=== PATIENT | male | born 1965 | race Two or more races ===

== ENCOUNTER 2023-01-13 18:12 | Inpatient (IN) | payer MEDICAID, OTHER ==
[~2023-01-13] VITALS: Ht 172.7 cm; Wt 74.9 kg
[2023-01-13 19:54] LABS: Basophils # (auto) 0.1 10 ^3/uL (0-0.2); Basophils % (auto) 0.6 % (0.0-2.0); Eosinophils # (auto) 0 10 ^3/uL (0-0.8); Eosinophils % (auto) 0.4 % (0.0-7.0); Hematocrit 45.2 % (41.0-53.0); Lymphocytes # (auto) 1.2 10 ^3/uL (0.4-5.4); Mean Corpuscular Hemoglobin 30.3 pg (28.0-32.0); Mean Corpuscular Hgb Conc. 33.2 g/dL (32.0-36.0); Mean Corpuscular Volume 91.3 fL (80.0-100.0); Monocytes # (auto) 1.5 10 ^3/uL (0-1.3); Monocytes % (auto) 11.6 % (0.0-12.0); Neutrophils # (auto) 10.3 10 ^3/uL (1.6-8.6); Neutrophils % (auto) 78.4 % (37.0-80.0); Nucleated Red Blood Cells % 0.1 %; Red Blood Cells 4.95 10^6/uL (4.5-5.90); Red Cell Distribution Width 13.7 % (11.8-14.3); White Blood Cell 13.1 10^3/uL (4.4-10.8)
[2023-01-13 20:15] LABS: Lactic Acid w/Reflex 2.1 mmol/L (0.4-2.0)
[2023-01-13 20:16] LABS: Alanine Aminotransferase 63 U/L (7-40); Albumin 3.7 g/dL (3.2-4.8); Alkaline Phosphatase 247 U/L (46-116); Anion Gap 6.8 (5-15); Aspartate Aminotransferase 36 U/L (13-40); BUN/Creatinine Ratio 10.6 (10.0-20.0); Bilirubin, Total 0.6 mg/dL (0.2-1.0); Blood Urea Nitrogen 9 mg/dL (9-23); Calcium 9.5 mg/dL (8.7-10.4); Carbon Dioxide 25.2 mmol/L (20-30); Chloride 93 mmol/L (98-107); Glucose 386 mg/dL (74-106); Potassium 4.9 mmol/L (3.5-5.1); Sodium 125 mmol/L (136-145); Total Protein 7.8 g/dL (5.7-8.2)
[2023-01-14] MEDS ORDERED: PIPERACILLIN-TAZOB 3.375GM 100 ML IV ONE (02:15)
[2023-01-14] MEDS ORDERED: VANCOMYCIN HCL 1000 MG VL IR ONE (02:15)
[2023-01-14] MEDS ORDERED: SODIUM CHLORIDE 0.9% 1,000 ML IV ONE (02:15)
[2023-01-14] MEDS ORDERED: IODIXANOL 320MG/ML 100ML BTL IV ONE (02:32)
[2023-01-14] MEDS ORDERED: VANCOMYCIN PER PHARMACY 0 MG IV SCH (05:00)
[2023-01-14] MEDS ORDERED: ACETAMINOPHEN 325 MG TAB PO PRN (05:00)
[2023-01-14] MEDS ORDERED: DEXTROSE (50%) 50ML SYRG IV PRN (05:00)
[2023-01-14] MEDS ORDERED: ONDANSETRON HCL 4 MG/2 ML VIAL IV PRN (05:00)
[2023-01-14] MEDS ORDERED: TEMAZEPAM 15 MG CAP PO PRN (05:00)
[2023-01-14 05:52] LABS: Erythrocyte Sedimentation Rate 54 mm/hr (0-20)
[2023-01-14] MEDS: ACCU-CHEK COMFORT CURVE STRIP VI SCH ×4 (06:27→23:25)
[2023-01-14] MEDS: InsuLIN REG 1unit/0.01ml Soln (100units/ml) SC SCH ×4 (06:29→23:24)
[2023-01-14] MEDS ORDERED: VANCOMYCIN 1GM/250ML 250 ML IV ONE (08:30)
[2023-01-14 09:58] VITALS: PULSE 89; RESP 18; O2SAT 94
[2023-01-14 13:42] LABS: Urine Bacteria FEW /hpf (None Seen); Urine Blood Negative /uL (Negative); Urine Clarity Clear (Clear); Urine Color Colorless (Yellow); Urine Protein, UAD Negative (Negative); Urine Specific Gravity 1.018 (1.001-1.035); Urine Urobilinogen Normal (Negative); Urine WBC 3 /hpf (0 - 3)
[2023-01-14] MEDS: HYDROcodone-ACET 5/325MG TAB PO PRN ×2 (15:02→22:30)
[2023-01-14] MEDS: PIPERACILLIN-TAZOB 3.375GM 100 ML IV SCH ×2 (15:02→22:06)
[2023-01-14 18:45] VITALS: PULSE 84; RESP 18; O2SAT 96
[2023-01-14 18:58] VITALS: PULSE 81; O2SAT 98
[2023-01-14 19:02] VITALS: PULSE 82; RESP 18; O2SAT 98
[2023-01-14 20:00] VITALS: PULSE 102; RESP 18; O2SAT 95
[2023-01-14] MEDS: VANCOMYCIN 1GM/250ML 250 ML IV SCH (21:02)
[2023-01-14 22:00] VITALS: BP 169/91; PULSE 102; RESP 20; TEMP 98.2; O2SAT 96
[2023-01-14] MEDS: DAKINS QUARTER STR 0.125% (NaHypochlorite) 473 ML TOPICAL SOL TOP SCH (22:06)
[2023-01-15 05:00] VITALS: BP 134/80; PULSE 88; RESP 18; TEMP 98.4; O2SAT 92
[2023-01-15] MEDS: PIPERACILLIN-TAZOB 3.375GM 100 ML IV SCH ×3 (05:35→22:34)
[2023-01-15] MEDS: ACCU-CHEK COMFORT CURVE STRIP VI SCH ×4 (05:35→23:59)
[2023-01-15] MEDS: InsuLIN REG 1unit/0.01ml Soln (100units/ml) SC SCH ×4 (05:42→23:58)
[2023-01-15] MEDS: HYDROcodone-ACET 5/325MG TAB PO PRN ×4 (05:48→21:11)
[2023-01-15 07:54] LABS: Basophils # (auto) 0 10 ^3/uL (0-0.2); Basophils % (auto) 0.4 % (0.0-2.0); Eosinophils # (auto) 0.1 10 ^3/uL (0-0.8); Hematocrit 37.2 % (41.0-53.0); Hemoglobin 12.4 g/dL (13.5-17.5); Lymphocytes % (auto) 9.8 % (10.0-50.0); Mean Corpuscular Hemoglobin 30.4 pg (28.0-32.0); Mean Corpuscular Hgb Conc. 33.3 g/dL (32.0-36.0); Mean Corpuscular Volume 91.3 fL (80.0-100.0); Monocytes # (auto) 1.4 10 ^3/uL (0-1.3); Monocytes % (auto) 13.9 % (0.0-12.0); Neutrophils # (auto) 7.4 10 ^3/uL (1.6-8.6); Neutrophils % (auto) 74.9 % (37.0-80.0); Red Blood Cells 4.07 10^6/uL (4.5-5.90); Red Cell Distribution Width 13.5 % (11.8-14.3)
[2023-01-15 07:57] LABS: Alanine Aminotransferase 38 U/L (7-40); Albumin 2.9 g/dL (3.2-4.8); Alkaline Phosphatase 140 U/L (46-116); Anion Gap 6.9 (5-15); Aspartate Aminotransferase 24 U/L (13-40); BUN/Creatinine Ratio 11.4 (10.0-20.0); Blood Urea Nitrogen 8 mg/dL (9-23); Calcium 8.7 mg/dL (8.5-10.1); Carbon Dioxide 24.1 mmol/L (20-30); Chloride 100 mmol/L (98-107)
[2023-01-15 07:58] LABS: Bilirubin, Total 0.5 mg/dL (0.2-1.0); Total Protein 6.2 g/dL (5.7-8.2)
[2023-01-15 08:02] LABS: Glucose 282 mg/dL (74-106); Sodium 131 mmol/L (136-145)
[2023-01-15 09:00] VITALS: BP 110/65; PULSE 82; RESP 17; TEMP 98; O2SAT 92
[2023-01-15] MEDS: VANCOMYCIN 1GM/250ML 250 ML IV SCH ×2 (09:17→20:55)
[2023-01-15] MEDS: DAKINS QUARTER STR 0.125% (NaHypochlorite) 473 ML TOPICAL SOL TOP SCH ×2 (11:33→20:59)
[2023-01-15 13:00] VITALS: BP_SYST 128; BP_SYST 149; BP_DIAS 53; BP_DIAS 78; PULSE 83; PULSE 99; RESP 17; RESP 20; TEMP 97.6; TEMP 98.6; O2SAT 95; O2SAT 99
[2023-01-15 16:56] VITALS: BP 167/99; PULSE 85; RESP 17; TEMP 98.1; O2SAT 95
[2023-01-15 20:00] VITALS: PULSE 94; RESP 19; O2SAT 96
[2023-01-15 22:00] VITALS: BP 149/85; PULSE 88; RESP 22; TEMP 98.3; O2SAT 95
[2023-01-16] VITALS (8 sets, daily range): BP systolic 129–155; BP diastolic 83–96; PULSE 56–103; RESP 14–22; TEMP 97.7–98.4; O2SAT 93–99
[2023-01-16] MEDS: PIPERACILLIN-TAZOB 3.375GM 100 ML IV SCH ×2 (05:46→14:27)
[2023-01-16] MEDS: ACCU-CHEK COMFORT CURVE STRIP VI SCH ×3 (05:49→18:43)
[2023-01-16] MEDS: InsuLIN REG 1unit/0.01ml Soln (100units/ml) SC SCH ×3 (05:54→18:44)
[2023-01-16] MEDS: VANCOMYCIN 1GM/250ML 250 ML IV SCH (09:27)
[2023-01-16] MEDS: DAKINS QUARTER STR 0.125% (NaHypochlorite) 473 ML TOPICAL SOL TOP SCH ×2 (10:00→21:24)
[2023-01-16] MEDS ORDERED: fentaNYL CITRATE 100 MCG/2 ML VL ONE (11:45)
[2023-01-16] MEDS ORDERED: SODIUM CHLORIDE LOCK 10 ML ONE (11:45)
[2023-01-16] MEDS ORDERED: PROPOFOL 10 MG/ML 20 ML IV ONE (11:45)
[2023-01-16] MEDS ORDERED: MIDAZOLAM HCL 2MG/2ML 2ml VIAL (1mg/ml) ONE (11:45)
[2023-01-16] MEDS ORDERED: ONDANSETRON HCL 4 MG/2 ML VIAL ONE (11:45)
[2023-01-16] MEDS ORDERED: HYDROmorphone HCL 2 MG/ML VL/or syr IV PRN ×2 (12:15)
[2023-01-16] MEDS ORDERED: METOCLOPRAMIDE HCL 5MG/ml INJ 2ml VIAL IV PRN (12:15)
[2023-01-16] MEDS ORDERED: ACCU-CHEK COMFORT CURVE STRIP VI ONE (12:15)
[2023-01-16] MEDS ORDERED: MORPHINE SULFATE INJ 2 MG/ml SYRG IV PRN (12:15)
[2023-01-16] MEDS ORDERED: LIDOCAINE 1% HCL (LOCAL ANESTH.) INJ 20ML MDV ONE (12:16)
[2023-01-16] MEDS ORDERED: BUPIVACAINE 0.5% P/F INJ 10 ML VIAL ONE (12:16)
[2023-01-16] MEDS: HYDROcodone-ACET 5/325MG TAB PO PRN ×2 (14:28→21:36)
[2023-01-16] MEDS: ceFAZolin 2 GM/D5W100ml 100 ML IV SCH (21:24)
[2023-01-17] VITALS (7 sets, daily range): BP systolic 116–154; BP diastolic 72–84; PULSE 77–90; RESP 13–20; TEMP 97.7–98.3; O2SAT 93–98
[2023-01-17] MEDS: InsuLIN REG 1unit/0.01ml Soln (100units/ml) SC SCH ×4 (00:34→21:30)
[2023-01-17] MEDS: ceFAZolin 2 GM/D5W100ml 100 ML IV SCH ×3 (05:51→21:21)
[2023-01-17] MEDS: ACCU-CHEK COMFORT CURVE STRIP VI SCH ×5 (05:54→21:21)
[2023-01-17] MEDS: DAKINS QUARTER STR 0.125% (NaHypochlorite) 473 ML TOPICAL SOL TOP SCH ×2 (10:00→22:00)
[2023-01-17 10:04] LABS: Basophils # (auto) 0 10 ^3/uL (0-0.2); Basophils % (auto) 0.4 % (0.0-2.0); Eosinophils # (auto) 0.1 10 ^3/uL (0-0.8); Eosinophils % (auto) 1.5 % (0.0-7.0); Hematocrit 40.9 % (41.0-53.0); Hemoglobin 13.1 g/dL (13.5-17.5); Lymphocytes # (auto) 1.1 10 ^3/uL (0.4-5.4); Mean Corpuscular Hemoglobin 29.2 pg (28.0-32.0); Mean Corpuscular Hgb Conc. 31.9 g/dL (32.0-36.0); Mean Corpuscular Volume 91.4 fL (80.0-100.0); Monocytes # (auto) 0.7 10 ^3/uL (0-1.3); Monocytes % (auto) 10.2 % (0.0-12.0); Neutrophils # (auto) 5.3 10 ^3/uL (1.6-8.6); Neutrophils % (auto) 72.9 % (37.0-80.0); Red Blood Cells 4.47 10^6/uL (4.5-5.90); Red Cell Distribution Width 13.6 % (11.8-14.3); White Blood Cell 7.3 10^3/uL (4.4-10.8)
[2023-01-17 10:14] LABS: INR 1.13 (0.9-1.15); Prothrombin Time 11.8 sec (9.3-11.8)
[2023-01-17 10:47] LABS: Alanine Aminotransferase 31 U/L (7-40); Albumin 2.9 g/dL (3.2-4.8); Alkaline Phosphatase 132 U/L (46-116); Anion Gap 4.6 (5-15); Aspartate Aminotransferase 22 U/L (13-40); BUN/Creatinine Ratio 9.5 (10.0-20.0); Blood Urea Nitrogen 6 mg/dL (9-23); Calcium 8.9 mg/dL (8.5-10.1); Carbon Dioxide 29.4 mmol/L (20-30); Chloride 101 mmol/L (98-107); Glucose 212 mg/dL (74-106); Potassium 4.1 mmol/L (3.5-5.1); Sodium 135 mmol/L (136-145)
[2023-01-17 10:48] LABS: Bilirubin, Total 0.4 mg/dL (0.2-1.0); Total Protein 6.5 g/dL (5.7-8.2)
[2023-01-17] MEDS ORDERED: PHENYLEPHRINE HCL 10 MG/ML VL ONE (11:13)
[2023-01-17] MEDS ORDERED: ONDANSETRON HCL 4 MG/2 ML VIAL ONE (11:13)
[2023-01-17] MEDS ORDERED: HYDROmorphone HCL 2 MG/ML VL/or syr ONE (11:13)
[2023-01-17] MEDS ORDERED: LIDOCAINE 2% (LOCAL ANESTH.) PF 5ml SDV ONE (11:13)
[2023-01-17] MEDS ORDERED: PROPOFOL 10 MG/ML 20 ML IV ONE (11:13)
[2023-01-17] MEDS ORDERED: MIDAZOLAM HCL 2MG/2ML 2ml VIAL (1mg/ml) ONE (11:13)
[2023-01-17] MEDS ORDERED: fentaNYL CITRATE 100 MCG/2 ML VL ONE (11:13)
[2023-01-17] MEDS ORDERED: ePHEDrine SULFATE 50 MG/ML AMP ONE (11:13)
[2023-01-17] MEDS ORDERED: GLYCOPYRROLATE 0.2 MG/ML 1ML VIAL ONE (11:13)
[2023-01-17] MEDS ORDERED: KETOROLAC TROMETH 30 MG/ML 1ML VIAL ONE (11:13)
[2023-01-17] MEDS ORDERED: MEPERIDINE HCL (25 MG/ML) 1ML VIAL ONE (11:24)
[2023-01-17] MEDS ORDERED: VANCOMYCIN HCL 1000 MG VL ONE (11:36)
[2023-01-17] MEDS ORDERED: HYDROmorphone HCL 2 MG/ML VL/or syr IV PRN (12:00)
[2023-01-17] MEDS ORDERED: ACCU-CHEK COMFORT CURVE STRIP VI ONE (12:00)
[2023-01-17] MEDS ORDERED: ONDANSETRON HCL 4 MG/2 ML VIAL IV PRN (12:00)
[2023-01-17] MEDS: HYDROcodone-ACET 5/325MG TAB PO PRN (13:12)
[2023-01-17] MEDS ORDERED: InsuLIN REG 1unit/0.01ml Soln (100units/ml) SC ONE (18:15)
[2023-01-18] VITALS (7 sets, daily range): BP systolic 132–143; BP diastolic 71–84; PULSE 74–82; RESP 16–20; TEMP 97.4–97.9; O2SAT 93–98
[2023-01-18] MEDS: DAKINS QUARTER STR 0.125% (NaHypochlorite) 473 ML TOPICAL SOL TOP SCH ×3 (00:11→21:49)
[2023-01-18] MEDS: ceFAZolin 2 GM/D5W100ml 100 ML IV SCH ×3 (06:08→21:36)
[2023-01-18] MEDS: ACCU-CHEK COMFORT CURVE STRIP VI SCH ×4 (06:08→21:46)
[2023-01-18] MEDS: InsuLIN REG 1unit/0.01ml Soln (100units/ml) SC SCH ×4 (06:19→21:49)
[2023-01-18] MEDS: HYDROcodone-ACET 5/325MG TAB PO PRN (06:35)
[2023-01-19 05:00] VITALS: BP 139/80; PULSE 83; RESP 16; TEMP 98.7; O2SAT 95
[2023-01-19] MEDS: ACCU-CHEK COMFORT CURVE STRIP VI SCH ×4 (06:06→21:27)
[2023-01-19] MEDS: ceFAZolin 2 GM/D5W100ml 100 ML IV SCH ×3 (06:06→21:26)
[2023-01-19] MEDS: InsuLIN REG 1unit/0.01ml Soln (100units/ml) SC SCH ×4 (06:11→21:33)
[2023-01-19] MEDS: HYDROcodone-ACET 5/325MG TAB PO PRN ×3 (06:27→21:37)
[2023-01-19 08:00] VITALS: BP 137/85; PULSE 82; RESP 18; TEMP 98.1; O2SAT 95
[2023-01-19 08:55] VITALS: BP 137/85; PULSE 82; RESP 18; TEMP 98.1; O2SAT 95
[2023-01-19] MEDS: DAKINS QUARTER STR 0.125% (NaHypochlorite) 473 ML TOPICAL SOL TOP SCH ×2 (09:19→21:27)
[2023-01-19 13:00] VITALS: BP 149/93; PULSE 75; RESP 18; TEMP 97.5; O2SAT 94
[2023-01-19] MEDS ORDERED: LISINOPRIL 5 MG TAB PO ONE (14:15)
[2023-01-19 17:00] VITALS: BP 150/89; PULSE 75; RESP 18; TEMP 97.4; O2SAT 95
[2023-01-19 20:00] VITALS: BP 127/75; PULSE 73; RESP 18; TEMP 98.3; O2SAT 98
[2023-01-20 05:00] VITALS: BP 139/80; PULSE 77; RESP 18; TEMP 98.3; O2SAT 95
[2023-01-20] MEDS: ceFAZolin 2 GM/D5W100ml 100 ML IV SCH ×2 (06:04→14:00)
[2023-01-20] MEDS: ACCU-CHEK COMFORT CURVE STRIP VI SCH ×2 (06:05→11:47)
[2023-01-20] MEDS: InsuLIN REG 1unit/0.01ml Soln (100units/ml) SC SCH ×2 (06:11→11:49)
[2023-01-20 07:55] LABS: Basophils # (auto) 0.1 10 ^3/uL (0-0.2); Basophils % (auto) 0.7 % (0.0-2.0); Eosinophils # (auto) 0.1 10 ^3/uL (0-0.8); Eosinophils % (auto) 1.5 % (0.0-7.0); Hematocrit 38.6 % (41.0-53.0); Hemoglobin 12.9 g/dL (13.5-17.5); Lymphocytes # (auto) 1.5 10 ^3/uL (0.4-5.4); Lymphocytes % (auto) 19.6 % (10.0-50.0); Mean Corpuscular Hemoglobin 30.8 pg (28.0-32.0); Mean Corpuscular Hgb Conc. 33.4 g/dL (32.0-36.0); Mean Corpuscular Volume 92.3 fL (80.0-100.0); Monocytes # (auto) 0.7 10 ^3/uL (0-1.3); Monocytes % (auto) 9.5 % (0.0-12.0); Neutrophils # (auto) 5.1 10 ^3/uL (1.6-8.6); Neutrophils % (auto) 68.7 % (37.0-80.0); Red Blood Cells 4.18 10^6/uL (4.5-5.90); Red Cell Distribution Width 13.3 % (11.8-14.3); White Blood Cell 7.5 10^3/uL (4.4-10.8)
[2023-01-20 08:00] VITALS: BP 150/85; PULSE 77; RESP 16; TEMP 97.7; O2SAT 94
[2023-01-20 08:03] LABS: Alanine Aminotransferase 41 U/L (7-40); Alkaline Phosphatase 164 U/L (46-116); Anion Gap 5.9 (5-15); BUN/Creatinine Ratio 12.5 (10.0-20.0); Blood Urea Nitrogen 8 mg/dL (9-23); Calcium 9.1 mg/dL (8.5-10.1); Carbon Dioxide 28.1 mmol/L (20-30); Chloride 100 mmol/L (98-107); Glucose 173 mg/dL (74-106); LDL Cholesterol 81 mg/dL (< 100); Potassium 4.2 mmol/L (3.5-5.1); Sodium 134 mmol/L (136-145); Triglycerides 152 mg/dL (< 150)
[2023-01-20 08:04] LABS: Albumin 3.1 g/dL (3.2-4.8); Aspartate Aminotransferase 35 U/L (13-40); Bilirubin, Total 0.4 mg/dL (0.2-1.0); Cholesterol 141 mg/dL (< 200); HDL Cholesterol 37 mg/dL (40-59); Total Protein 6.5 g/dL (5.7-8.2)
[2023-01-20 09:00] VITALS: BP 147/82; PULSE 77; RESP 16; TEMP 97.7; O2SAT 94
[2023-01-20] MEDS: HYDROcodone-ACET 5/325MG TAB PO PRN (09:23)
[2023-01-20] MEDS: DAKINS QUARTER STR 0.125% (NaHypochlorite) 473 ML TOPICAL SOL TOP SCH (09:24)
[2023-01-20] MEDS ORDERED: ERGOCALCIFEROL 50,000 UNIT(1.25MG) CAP PO SCH (10:00)
[2023-01-20] MEDS ORDERED: LISINOPRIL 5 MG TAB PO SCH (10:00)
[2023-01-20] MEDS ORDERED: DAKI0.12 TOP (12:21)
[2023-01-20] MEDS ORDERED: METF500S3 PO (12:21)
[2023-01-20] MEDS ORDERED: ATOR20TA PO (12:21)
[2023-01-20] MEDS ORDERED: LISI-275 PO (12:21)
[2023-01-20] MEDS ORDERED: ERGO1CAP23 PO (12:21)
[2023-01-20] MEDS ORDERED: CEPH250C PO (12:22)
[2023-01-20 13:00] VITALS: BP 146/85; PULSE 74; RESP 20; TEMP 97.8; O2SAT 95
[2023-01-20 13:49] VITALS: BP 147/82; PULSE 77; RESP 16; TEMP 97.7; O2SAT 94
== END 2023-01-20 14:45 | disposition home or self-care (01) | DRG 364 ==
LOC: ER 18:12 → OVERFLOW 01-14 04:57 → WEST WING 01-14 18:18
PROVIDERS: ADMIT Nurse Practitioner; ATTEND Internal Medicine
PROC: 0Y9N0ZZ Drainage of Left Foot, Open Approach (ICD-10-PCS; 2023-01-17)
PROC: 0J9D0ZZ Drainage of Right Upper Arm Subcutaneous Tissue and Fascia, Open Approach (ICD-10-PCS; principal; 2023-01-17 11:13)
DX: L02.414 Cutaneous abscess of left upper limb (principal); E87.1 Hypo-osmolality and hyponatremia; L03.116 Cellulitis of left lower limb; E11.9 Type 2 diabetes mellitus without complications; B95.61 Methicillin susceptible Staphylococcus aureus infection as the cause of diseases classified elsewhere; E78.5 Hyperlipidemia, unspecified; I10 Essential (primary) hypertension; L02.612 Cutaneous abscess of left foot; M19.011 Primary osteoarthritis, right shoulder; Z59.7 Insufficient social insurance and welfare support; Z79.4 Long term (current) use of insulin; Z83.3 Family history of diabetes mellitus; Z91.148 Patient's other noncompliance with medication regimen for other reason
CPT/HCPCS: 36415; 71260; 73201; 73701; 80053; 80061; 80202; 81001; 82306; 82962; 83036; 83605; 84443; 85025; 85610; 85652; 86141; 86850; 86900; 86901; 87040; 87070; 87075; 87077; 87186; 87205; 96365; 96366; 97110; 97116; 97163; 97530; G0378; J1815; J1885; J2001; J2250; J2405; J2543; J2704; J3490; Q9967

== ENCOUNTER → 2023-04-30 | Outpatient (CLI) | payer MEDICAID ==
[~2023-04-30] MED LIST: ATOR20TA PO; CEPH250C PO; DAKI0.12 TOP; ERGO1CAP23 PO; LISI-275 PO; METF500S3 PO
[2023-04-30 09:12] LABS: Basophils # (auto) 0 10 ^3/uL (0-0.2); Basophils % (auto) 0.7 % (0.0-2.0); Eosinophils # (auto) 0.2 10 ^3/uL (0-0.8); Eosinophils % (auto) 2.8 % (0.0-7.0); Hematocrit 44.2 % (41.0-53.0); Hemoglobin 15.1 g/dL (13.5-17.5); Lymphocytes # (auto) 1.9 10 ^3/uL (0.4-5.4); Lymphocytes % (auto) 33.5 % (10.0-50.0); Mean Corpuscular Hemoglobin 29.3 pg (28.0-32.0); Mean Corpuscular Hgb Conc. 34.2 g/dL (32.0-36.0); Mean Corpuscular Volume 85.9 fL (80.0-100.0); Monocytes # (auto) 0.5 10 ^3/uL (0-1.3); Monocytes % (auto) 8.9 % (0.0-12.0); Neutrophils % (auto) 54.1 % (37.0-80.0); Nucleated Red Blood Cells % 0.1 %; Red Blood Cells 5.14 10^6/uL (4.5-5.90); Red Cell Distribution Width 13.6 % (11.8-14.3); White Blood Cell 5.6 10^3/uL (4.4-10.8)
[2023-04-30 09:32] LABS: Creatinine, Urine 39.24 mg/dL (30.0-125.0)
[2023-04-30 09:33] LABS: Alanine Aminotransferase 23 U/L (7-40); Albumin 4.6 g/dL (3.2-4.8); Alkaline Phosphatase 113 U/L (46-116); Anion Gap 9 (5-15); Aspartate Aminotransferase 16 U/L (13-40); BUN/Creatinine Ratio 12.1 (10.0-20.0); Bilirubin, Total 0.3 mg/dL (0.2-1.0); Blood Urea Nitrogen 11 mg/dL (9-23); Calcium 10.1 mg/dL (8.5-10.1); Carbon Dioxide 26 mmol/L (20-30); Chloride 102 mmol/L (98-107); Cholesterol 176 mg/dL (< 200); Glucose 132 mg/dL (74-106); HDL Cholesterol 51 mg/dL (40-59); LDL Cholesterol 119 mg/dL (< 100); Potassium 4.3 mmol/L (3.5-5.1); Sodium 137 mmol/L (136-145); Total Protein 7.6 g/dL (5.7-8.2); Triglycerides 99 mg/dL (< 150)
[2023-04-30 09:35] LABS: Micro Albumin < 3.0 mg/L (<30.0)
== END | disposition home or self-care (01) ==
LOC: LAB 08:50
PROVIDERS: ATTEND Nurse Practitioner Family
DX: Z00.01 Encounter for general adult medical examination with abnormal findings (principal); E11.65 Type 2 diabetes mellitus with hyperglycemia
CPT/HCPCS: 36415; 80053; 80061; 82043; 82306; 82570; 83036; 84439; 84443; 85025

== ENCOUNTER 2024-08-26 12:16 | Emergency (ER) | payer MEDICAID ==
[~2024-08-26] VITALS: Ht 170.2 cm; Wt 82.7 kg
[2024-08-26 12:55] VITALS: BP 147/86; PULSE 99; RESP 18; TEMP 97.5; O2SAT 97
--- NOTE | 2024-08-26 13:19 | ED.PDOC ---
HPI (NEURO) HPI Comments A 59 YEAR OLD MALE PRESENTS TO THE ED WITH COMPLAINT OF HEADACHE. PATIENT STATES HE BEGAN TO EXPERIENCE A HEADACHE WITH NAUSEA AND VOMITING YESTERDAY. PATIENT REPORTS HE IS NO LONGER VOMITING AND STATES HIS HEADACHE IS NOT BAD YESTERDAY, BUT WOULD STILL LIKE TO BE EVALUATED. PATIENT DENIES VISION CHANGES, SLURRED SPEECH, ONE-SIDED WEAKNESS, FACIAL DROOP, FEVER, CHILLS, SHORTNESS OF BREATH, CHEST PAIN, ABDOMINAL PAIN, OR OTHER COMPLAINTS. NO OTHER SYMPTOMS OR MODIFYING FACTORS AT THIS TIME. PATIENT IS ALERT, ORIENTED X 4, AND HAS STEADY GAIT. Chief Complaint: Headache Time Seen by MD: 12:21 Primary Care Provider: KRISTA JORDAN Reviewed Notes: Nurses Notes, Medications, Allergies Information Source: Patient Mode of Arrival: Ambulatory Severity: Mild, Moderate Headache Severity: Mild, Moderate Timing: Days Duration: Since onset, Days Prehospital treatment: None Headache Quality: Aching Headache Location: Parietal Onset: At rest Circumstances: Spontaneous Symptoms: Other (NAUSEA AND MILD VOMITING ) Before: Normal History of: DM, Hypertension Modifying factors: Nothing Associated Signs and Symptoms: Headache, Nausea, Vomiting Past Medical History PAST MEDICAL HISTORY: DM, High Lipids, HTN Surgical History: Denies all surgeries Family History Family History: Reviewed,noncontributory to illness Social History Smoker: Non-Smoker Alcohol: Denies ETOH Use Drugs: Denies Drug Use Lives In: Home Constitutional: denies: chills, diaphoresis, fatigue, fever, malaise, sweats, weakness, others EENTM: denies: blurred vision, double vision, ear bleeding, ear discharge, ear drainage, ear pain, ear ringing, eye pain, eye redness, hearing loss, mouth pain, mouth swelling, nasal discharge, nose bleeding, nose congestion, nose pain, photophobia, tearing, throat pain, throat swelling, voice changes, others Cardiovascular: denies: chest pain, dizzy spells, diaphoresis, Dyspnea on exertion, edema, irregular heart beat, left arm pain, lightheadedness, palpitations, PND, syncope, others Gastrointestinal: reports: nausea, vomiting; denies: abdomen distended, abdominal pain, blood streaked bowels, constipated, diarrhea, dysphagia, difficulty swallowing, hematemesis, melena, poor appetite, poor fluid intake, rectal bleeding, rectal pain, others Genitourinary: denies: burning, dysuria, flank pain, frequency, hematuria, incontinence, penile discharge, penile sore, pain, testicle pain, testicle swelling, urgency, others Neurological: reports: headache; denies: dizziness, fainting, left sided numbness, left sided weakness, numbness, paresthesia, pre-existing deficit, right sided numbness, right sided weakness, seizure, speech problems, tingling, tremors, weakness, others Musculoskeletal: denies: back pain, gout, joint pain, joint swelling, muscle pain, muscle stiffness, neck pain, others Integumetry: denies: bruises, change in color, change in hair/nails, dryness, laceration, lesions, lumps, rash, wounds, others Allergic/Immunocompromised: denies: Difficulty Healing, Frequent Infections, Hives, Itching, others Hematologic/Lymphatic: denies: anemia, blood clots, easy bleeding, easy bruising, swollen glands, others Endocrine: denies: excessive hunger, excessive sweating, excessive thirst, excessive urination, flushing, intolerance to cold, intolerance to heat, unexplained weight gain, unexplained weight loss, others Psychiatric: denies: anxiety, bipolar disorder, depression, hopeless, panic disorder, schizophrenia, sleepless, suicidal, others All Other Systems: Reviewed and Negative Physical Exam General Appearance: No Apparent Distress, Normal HEENT: Normal ENT Inspection, PERRL/EOMI, Pharynx Normal, TMs Normal Neck: Full Range of Motion, Non-Tender, Normal, Normal Inspection Respiratory: Chest Non-Tender, Lungs Clear, No Accessory Muscle Use, No Respiratory Distress, Normal Breath Sounds Cardiovascular: No Edema, No JVD, No Murmur, No Gallop, Normal Peripheral Pulses, Regular Rate/Rhythm Breast Exam: Deferred Gastrointestinal: No Organomegaly, Non Tender, No Pulsatile Mass, Normal Bowel Sounds, Soft Genitalia: Deferred Pelvic: Deferred Rectal: Deferred Extremities: No calf tenderness, Normal capillary refill, Normal inspection, Normal range of motion, Non-tender, No pedal edema Musculoskeletal : Apperance: Normal Neurologic: Alert, human resources advisor II-XII nml as Tested, Headache, No Motor Deficits, Normal Affect, Normal Mood, No Sensory Deficits Cerebellar Function: Normal Reflexes: Normal Skin: Dry, Normal Color, Warm Peripheral Pulses: 2+ carotid (R), 2+ carotid (L) Lymphatic: No Adenopathy Was a procedure done? Was a procedure done?: No Differential Diagnosis (SZ) Seizure: N/A General Weakness: N/A Headache: Cluster, Migraine, Intracerebral Hemorrhage, Mass Lesion, Sinusitis X-Ray, Labs, Meds, VS Vital Signs Date Time Temp Pulse Resp B/P (MAP) Pulse Ox O2 Delivery O2 Flow Rate FiO2 08/26/24 12:55 99 18 97 Room Air 08/26/24 12:55 97.5 99 18 147/86 (106) 97 97.5 08/26/24 12:42 97.5 99 18 147/86 (106) 97 97.5 08/26/24 12:28 96 Lab Test 08/26/24 12:26 Range/Units POC Glucose 180 H 70-106 mg/dl EXAM: CT HEAD WITHOUT CONTRAST INDICATION: RIGHT DISE HEAD WITH NAUSEA TECHNIQUE: CT of the head without intravenous contrast. Radiation Dose : 1. Head: CT Dose: CTDI volume is 63.62 mGy. Dose-length product is 1126.29 mGy*cm The dose indicators for CT are the volume Computed Tomography (CT) Dose Index (CTDIvol) and the Dose Length Product (DLP), and are measured in units of mGy and mGy-cm, respectively. These indicators are not patient dose, but values generated from the CT scanner acquisition factors. The report includes radiation exposure data for exposures received during this examination. COMPARISON: None FINDINGS: There is no evidence of acute intracranial hemorrhage, extra-axial collection, mass effect, midline shift, herniation or hydrocephalus. The ventricles, sulci and cisterns are age appropriate. The hall-white differentiation is intact. The visualized paranasal sinuses and mastoid air cells are clear. The surrounding soft tissues and osseous structures are unremarkable. IMPRESSION: No acute intracranial abnormality. ATED BY: FRED MARTINEZ MD DICTATED DATE/TIME: 08/26/24 134 SIGNED BY: FRED MARTINEZ MD SIGNED DATE/TIME: 08/26/24 134 CC: X-Ray, Labs, Meds, VS Comment EXTERNAL MEDICAL RECORDS REVIEWED: [NONE] INDEPENDENT HISTORIANS: [NONE] SOCIAL DETERMINANTS OF HEALTH: [NONE] LABS ORDERED: NONE REVIEWED AND INTERPRETED RESULTS: NONE IMAGING ORDERED: CT BRAIN TREATMENTS ORDERED: NONE PROCEDURES PERFORMED: NONE CRITICAL CARE TIME: NONE I HAVE DISCUSSED THE PATIENT WITH THE ATTENDING PHYSICIAN DR. PRAKASH AND HE AGREES WITH THE PATIENT'S PLAN OF CARE AND DISPOSITION. BASED ON HISTORY OF PRESENT ILLNESS, AND PHYSICAL EXAM, PATIENT WILL BE DISCHARGED HOME. DISCUSSED PLAN FOR DISCHARGE HOME WITH RX [TYLENOL]. MEDICATION WARNINGS GIVEN. SHARED DECISION MAKING: DISCUSSED WITH PATIENT THAT THEIR WORKUP WAS NORMAL. PATIENT INSTRUCTED TO FOLLOW UP WITH PRIMARY CARE PROVIDER IN 1-2 DAYS FOR RE- EVALUATION OF SYMPTOMS. PATIENT VERBALIZES UNDERSTANDING TO RETURN TO ED FOR NEW OR WORSENING SYMPTOMS OR IF FOLLOW UP WITH PCP CANNOT BE OBTAINED. PATIENT FEELS COMFORTABLE GOING HOME AT THIS TIME. ALL QUESTIONS ADDRESSED AT TIME OF DISCHARGE. Images Reviewed?: Images reviewed and evaluated by me Time of 1ST Reevaluation: 14: Reevaluation 1ST: Improved Patient Education/Counseling: Diagnosis, Treatment, Need For Follow Up Family Education/Counseling: Diagnosis, Treatment, Need For Follow Up Medical Screening: No EMC Exist At This Time Departure 1 Departure Time of Disposition: 14:01 Impression: Primary Impression: Tension headache Disposition: 01 HOME / SELF CARE / HOMELESS Condition: Stable Additional Instructions: FOLLOW-UP WITH PCP IN 1 TO 2 DAYS. TAKE MEDICATIONS PRESCRIBED. RETURN TO ED FOR ANY NEW OR WORSENING SYMPTOMS. e-Prescriptions Acetaminophen (Tylenol Extra Strength Fo) 500 Mg Tab 1000 MG PO BID, #30 TAB Prov: RENEE BUSBY 08/26/24 Discharged With: Self Critical Care Note Critical Care Time?: No Stability Stability form required: No I personally scribed for RENEE BUSBY ([email or web address]) on 08/26/24 at 13:30. Electr onically submitted by Chance Ny ([email or web address]). I personally scribed for RENEE BUSBY ([email or web address]) on 08/26/24 at 13:56. Electro nically submitted by Chance Ny ([email or web address]). RENEE BUSBY Aug 26, 2024 13:19
--- NOTE | 2024-08-26 13:43 | DVH ---
EXAM: CT HEAD WITHOUT CONTRAST INDICATION: RIGHT DISE HEAD WITH NAUSEA TECHNIQUE: CT of the head without intravenous contrast. Radiation Dose : 1. Head: CT Dose: CTDI volume is 63.62 mGy. Dose-length product is 1126.29 mGy*cm The dose indicators for CT are the volume Computed Tomography (CT) Dose Index (CTDIvol) and the Dose Length Product (DLP), and are measured in units of mGy and mGy-cm, respectively. These indicators are not patient dose, but values generated from the CT scanner acquisition factors. The report includes radiation exposure data for exposures received during this examination. COMPARISON: None FINDINGS: There is no evidence of acute intracranial hemorrhage, extra-axial collection, mass effect, midline s hift, herniation or hydrocephalus. The ventricles, sulci and cisterns are age appropriate. The hall-white differentiation is intact. The visualized paranasal sinuses and mastoid air cells are clear. The surrounding soft tissues and osseous structures are unremarkable. IMPRESSION: No acute intracranial abnormality.
--- NOTE | 2024-08-26 13:53 | ECG ---
[facility] Test Date: 2024-08-26 Test Time: 12:28:13 Pat Name: CAROLINA DACOSTA Department: ER Room: Gender: Analyst [employer]: EL : 1965 Requested By: RENEE BUSBY Order Number: [id number] Reading MD: Measurements Intervals Hale Rate: 96 P: 8 ME: 163 QRS: 13 QRSD: 80 T: 39 QT: 345 QTc: 436 Interpretive Statements Sinus rhythm Please click the below link to view image of tracing.
[2024-08-26] MEDS ORDERED: ACET-1304 PO (14:00)
== END 2024-08-26 14:01 | disposition home or self-care (01) ==
LOC: ER 12:16
DX: G44.209 Tension-type headache, unspecified, not intractable (principal); I10 Essential (primary) hypertension; E11.9 Type 2 diabetes mellitus without complications; E78.5 Hyperlipidemia, unspecified
CPT/HCPCS: 70450; 82947; 82962; 93005